=== PATIENT | female | born 1980 | race African-American/Black ===

== ENCOUNTER 2017-05-02 13:44 | Emergency (ER) | payer MEDICAID, OTHER ==
[~2017-05-02] VITALS: Ht 170.2 cm; Wt 82.0 kg
[2017-05-02] MEDS ORDERED: KETOROLAC 60MG/2ML VIAL IM STA (18:10)
[2017-05-02 19:22] LABS: CLARITY URINE TURBID (CLEAR); COLOR URINE YELLOW (YELLOW); GLUCOSE URINE NEGATIVE (NEGATIVE); KETONES URINE NEGATIVE (NEGATIVE); LEUKOCYTE ESTERASE URINE TRACE (NEGATIVE); NITRITE URINE NEGATIVE (NEGATIVE); OCCULT BLOOD URINE NEGATIVE (NEGATIVE); PROTEIN URINE NEGATIVE (NEGATIVE); SPECIFIC GRAVITY URINE 1.029 (1.005-1.030); UROBILINOGEN URINE 0.2 E.U./dL (0.2-1.0)
[2017-05-02 19:26] LABS: BASOPHILS % 0.9 % (0.0-2.0); EOSINOPHILS % 2.4 % (0.0-5.0); HEMATOCRIT. 42.2 % (36.0-48.0); HEMOGLOBIN. 14.4 g/dL (12.0-16.0); LYMPHOCYTES % 20.4 % (20.0-50.0); MEAN CORPUSCULAR VOLUME 84.7 fL (81.0-99.0); MEAN PLATELET VOLUME 8.6 fl (7.4-10.4); MONOCYTES % 6.2 % (2.0-8.0); NEUTROPHILS % 70.1 % (40.0-76.0); PLATELET 453 x1000/uL (130-400); RED BLOOD CELL COUNT 4.98 mill/uL (4.2-5.4); RED CELL DISTRIBUTION WIDTH 15.7 % (11.6-14.6)
[2017-05-02 19:29] LABS: CHLORIDE 106 mEq/L (98-107)
[2017-05-02 19:35] LABS: CARBON DIOXIDE 25 mEq/L (21-32)
[2017-05-02 20:45] VITALS: BP 121/75
== END 2017-05-02 20:46 | disposition home or self-care (01) ==
LOC: ER 13:44
DX: N39.0 Urinary tract infection, site not specified (principal); B37.3 Candidiasis of vulva and vagina
CPT/HCPCS: 36415; 80053; 81001; 81025; 85025; 96372; 99284; J1885; Z7610

== ENCOUNTER 2017-08-05 12:34 | Emergency (ER) | payer MEDICAID, OTHER ==
[~2017-08-05] VITALS: Ht 167.6 cm; Wt 110.0 kg
[2017-08-05] MEDS ORDERED: SODIUM CHLORIDE 0.9% 1,000 ML IV ONE ×2 (12:39→16:45)
[2017-08-05 13:20] LABS: HEMATOCRIT. 39.9 % (36.0-48.0); HEMOGLOBIN. 13.9 g/dL (12.0-16.0); MEAN CORPUSCULAR HEMOGLOBIN 29.2 pg (28.0-32.0); MEAN CORPUSCULAR VOLUME 83.8 fL (81.0-99.0); MEAN PLATELET VOLUME 7.9 fl (7.4-10.4); PLATELET 465 x1000/uL (130-400); RED BLOOD CELL COUNT 4.76 mill/uL (4.2-5.4); RED CELL DISTRIBUTION WIDTH 15.3 % (11.6-14.6)
[2017-08-05 13:30] LABS: CARBON DIOXIDE 24 mEq/L (21-32); CHLORIDE 105 mEq/L (98-107); ETHANOL BLOOD < 10 mg/dL
[2017-08-05 13:37] LABS: PLATELET ESTIMATE INCREASED
[2017-08-05] MEDS ORDERED: DIAZEPAM 5 MG/ML 2ML CPJ IV ONE (13:45)
[2017-08-05] MEDS ORDERED: LORAZEPAM 2MG/ML CPJ ONE (13:53)
[2017-08-05 15:17] LABS: CLARITY URINE CLEAR (CLEAR); COLOR URINE YELLOW (YELLOW); KETONES URINE NEGATIVE (NEGATIVE); LEUKOCYTE ESTERASE URINE NEGATIVE (NEGATIVE); NITRITE URINE NEGATIVE (NEGATIVE); OCCULT BLOOD URINE NEGATIVE (NEGATIVE); PROTEIN URINE NEGATIVE (NEGATIVE)
[2017-08-05 15:34] LABS: *AMPHETAMINES SCREEN URINE NEGATIVE (NEGATIVE); *BARBITURATES SCREEN URINE NEGATIVE (NEGATIVE); *COCAINE SCREEN URINE NEGATIVE (NEGATIVE); CANNABINOID URINE SCREEN NEGATIVE (NEGATIVE); METHADONE URINE SCREEN NEGATIVE (NEGATIVE); OPIATES URINE SCREEN NEGATIVE (NEGATIVE); PHENCYCLIDINE URINE SCREEN NEGATIVE (NEGATIVE)
[2017-08-05 15:40] LABS: *BENZODIAZEPINES SCREEN URINE PRESUMTIVE POSITIVE (NEGATIVE)
[2017-08-05] MEDS ORDERED: AZITHROMYCIN 500 MG in DEXT 5% WATER 250 ML IV SCH (16:45)
[2017-08-05 17:08] VITALS: BP 142/87
[2017-08-05] MEDS ORDERED: LORAZEPAM 2MG/ML CPJ IV ONE (18:15)
== END 2017-08-05 17:54 | disposition home or self-care (01) ==
LOC: ER 12:39
DX: J18.9 Pneumonia, unspecified organism (principal); F44.5 Conversion disorder with seizures or convulsions; J81.1 Chronic pulmonary edema
CPT/HCPCS: 36415; 71010; 80053; 80305; 81003; 85025; 87804; 96361; 96365; 99285; G0482; J0456; J2060; J7030; Z7610; J7060

== ENCOUNTER 2018-07-05 18:17 | Emergency (ER) | payer OTHER ==
[~2018-07-05] VITALS: Ht 170.2 cm; Wt 96.0 kg
[2018-07-05 20:18] LABS: CLARITY URINE CLOUDY (CLEAR); COLOR URINE ORANGE (YELLOW); KETONES URINE TRACE (NEGATIVE); LEUKOCYTE ESTERASE URINE 1+ (NEGATIVE); NITRITE URINE NEGATIVE (NEGATIVE); OCCULT BLOOD URINE 3+ (NEGATIVE); PH URINE 5.5 (4.5-8.0); PROTEIN URINE 1+ (NEGATIVE); SPECIFIC GRAVITY URINE 1.033 (1.005-1.030)
[2018-07-05 21:46] LABS: BASOPHILS % 0.9 % (0.0-2.0); EOSINOPHILS % 2.1 % (0.0-5.0); HEMATOCRIT. 39.4 % (36.0-48.0); HEMOGLOBIN. 13.9 g/dL (12.0-16.0); MEAN CORPUSCULAR HEMOGLOBIN 29.6 pg (28.0-32.0); MEAN CORPUSCULAR VOLUME 83.7 fL (81.0-99.0); MEAN PLATELET VOLUME 8.4 fl (7.4-10.4); MONOCYTES % 5.6 % (2.0-8.0); NEUTROPHILS % 71.4 % (40.0-76.0); PLATELET 449 x1000/uL (130-400); RED BLOOD CELL COUNT 4.71 mill/uL (4.2-5.4); RED CELL DISTRIBUTION WIDTH 15.4 % (11.6-14.6)
[2018-07-05 21:50] LABS: CHLORIDE 107 mEq/L (98-107)
[2018-07-05 22:01] LABS: B-HCG QUANTITATIVE < 1 mIU/mL (<3)
[2018-07-05 23:48] VITALS: BP 141/78
== END 2018-07-05 23:48 | disposition home or self-care (01) ==
LOC: ER 22:41
DX: D25.9 Leiomyoma of uterus, unspecified (principal); N93.9 Abnormal uterine and vaginal bleeding, unspecified; Z90.81 Acquired absence of spleen
CPT/HCPCS: 36415; 76830; 76856; 81025; 84443; 84702; 99284

== ENCOUNTER 2018-12-08 07:18 | Emergency (ER) | payer OTHER ==
[~2018-12-08] VITALS: Ht 170.2 cm; Wt 102.2 kg
[2018-12-08] MEDS ORDERED: KETOROLAC 30MG/ML VIAL IV STA (08:09)
[2018-12-08] MEDS ORDERED: PIPERACILLIN/TAZ 3.375G PREMIX 50 ML IV ONE (08:15)
[2018-12-08] MEDS ORDERED: SODIUM CHLORIDE 0.9% 1000ML BAG (SEPSIS BOLUS) IV ONE (08:15)
[2018-12-08] MEDS ORDERED: VANCOMYCIN 1 G PREMIX 200 ML IV ONE (08:15)
[2018-12-08 08:42] LABS: BASOPHILS % 0.4 % (0.0-2.0); EOSINOPHILS % 3.1 % (0.0-5.0); HEMATOCRIT. 40.7 % (36.0-48.0); HEMOGLOBIN. 14.3 g/dL (12.0-16.0); LYMPHOCYTES % 8.4 % (20.0-50.0); MEAN CORPUSCULAR VOLUME 82.6 fL (81.0-99.0); MONOCYTES % 5.5 % (2.0-8.0); NEUTROPHILS % 82.6 % (40.0-76.0); PLATELET 447 x1000/uL (130-400); RED BLOOD CELL COUNT 4.92 mill/uL (4.2-5.4); RED CELL DISTRIBUTION WIDTH 15.7 % (11.6-14.6)
[2018-12-08 08:44] LABS: INR 1.1; PARTIAL THROMBOPLASTIN TIME 30.7 sec (23.4-31.0)
[2018-12-08 08:45] LABS: CHLORIDE 111 mEq/L (98-107)
[2018-12-08 08:53] LABS: HCG SCREEN NEGATIVE
[2018-12-08 10:04] LABS: CLARITY URINE CLOUDY (CLEAR); COLOR URINE YELLOW (YELLOW); KETONES URINE NEGATIVE (NEGATIVE); LEUKOCYTE ESTERASE URINE TRACE (NEGATIVE); NITRITE URINE NEGATIVE (NEGATIVE); OCCULT BLOOD URINE NEGATIVE (NEGATIVE); PROTEIN URINE NEGATIVE (NEGATIVE); SPECIFIC GRAVITY URINE 1.013 (1.005-1.030); UROBILINOGEN URINE 0.2 E.U./dL (0.2-1.0)
[2018-12-08 15:36] VITALS: BP 134/80
== END 2018-12-08 16:04 | disposition short-term general hospital (02) ==
LOC: ER 07:18 → CANBEDREQ 19:35
DX: L03.114 Cellulitis of left upper limb (principal); R65.10 Systemic inflammatory response syndrome (SIRS) of non-infectious origin without acute organ dysfunction; Z98.890 Other specified postprocedural states
CPT/HCPCS: 36415; 73090; 80048; 81003; 81025; 83605; 84145; 84703; 85025; 85610; 85730; 87040; 87086; 93005; 96365; 96366; 96368; 96375; 99285; J1885; J2543; J3370; J7030

== ENCOUNTER 2019-07-19 07:42 | Emergency (ER) | payer OTHER ==
[~2019-07-19] VITALS: Ht 170.2 cm; Wt 86.0 kg
[2019-07-19] MEDS ORDERED: ALBUTEROL (0.083%) 2.5MG/3ML NEB HHN ONE (09:00)
[2019-07-19 10:17] VITALS: BP 127/91
== END 2019-07-19 10:44 | disposition home or self-care (01) ==
LOC: ER 07:42
DX: J06.9 Acute upper respiratory infection, unspecified (principal); Z98.890 Other specified postprocedural states; Z90.81 Acquired absence of spleen
CPT/HCPCS: 71046; 81025; 87804; 94640; 99284; J7611; Z7610

== ENCOUNTER 2024-05-22 09:45 | Emergency (ER) | payer BC ==
[~2024-05-22] VITALS: Ht 170.2 cm; Wt 82.0 kg
[~2024-05-22 09:45] MED LIST: FLUT9.9S BOTHNSTRLS; IBUP-2029 MT; METH-653 MT; PSEU-207 MT; SULF1TAB48 MT
[2024-05-22 09:52] VITALS: O2SAT 100
[2024-05-22] MEDS: IBUPROFEN 600MG TABLET PO ONE (10:53)
[2024-05-22 11:18] VITALS: BP 145/87; PULSE 77; RESP 18; TEMP 36.66960; O2SAT 100
== END 2024-05-22 11:30 | disposition home or self-care (01) ==
LOC: MERGE 09:45 → ER 09:45
DX: M79.671 Pain in right foot (principal); Z79.899 Other long term (current) drug therapy; Z98.890 Other specified postprocedural states
CPT/HCPCS: 73610; 73630; 29515; 99284; Z7610

== ENCOUNTER → 2024-05-30 | Outpatient (CLI) | payer OTHER | END | disposition home or self-care (01) | LOC: MRI 12:17 | PROVIDERS: ATTEND Family Medicine Adult Medicine | DX: M71.571 Other bursitis, not elsewhere classified, right ankle and foot (principal); G57.91 Unspecified mononeuropathy of right lower limb | CPT/HCPCS: 73721 ==

== ENCOUNTER 2025-04-17 14:13 | Inpatient (IN) | payer MEDICAID ==
[~2025-04-17] VITALS: Ht 170.2 cm; Wt 90.7 kg
[2025-04-17 08:00] VITALS: BP 139/71; PULSE 55; RESP 18; TEMP 36.8; O2SAT 97
[~2025-04-17 14:13] MED LIST changes: +IBUP-1455 MT; -IBUP-2029 MT; -PSEU-207 MT; +PSEU-307 MT
[2025-04-17 14:22] VITALS: O2SAT 98
[2025-04-17] MEDS: SODIUM CHLORIDE 0.9% 1,000 ML IV ONE ×2 (15:45→17:49)
[2025-04-17] MEDS: METOCLOPRAMIDE HCL 10MG/2ML VIAL IV ONE (15:45)
[2025-04-17] MEDS: MORPHINE SULFATE 4 MG/ML INJ (FOR IV/IM USE) IV ONE (15:46)
[2025-04-17 15:51] LABS: HEMATOCRIT. 42.8 % (36.0-48.0); HEMOGLOBIN. 15.3 g/dL (12.0-16.0); MEAN PLATELET VOLUME 8.3 fl (7.4-10.4); PLATELET 470 x1000/uL (130-400); RED BLOOD CELL COUNT 5.23 mill/uL (4.2-5.4); RED CELL DISTRIBUTION WIDTH 15.9 % (11.6-14.6)
[2025-04-17 16:09] LABS: HCG SCREEN NEGATIVE
[2025-04-17 16:10] LABS: CREATININE 0.8 mg/dL (0.6-1.0); UREA NITROGEN BLOOD < 5 mg/dL (9-23)
[2025-04-17 16:11] LABS: ETHANOL BLOOD < 10 mg/dL (<10)
[2025-04-17 16:12] LABS: ASPARTATE AMINOTRANSFERASE 17 IU/L (<34); BILIRUBIN DIRECT 0.2 mg/dL (<=3.0)
[2025-04-17 16:13] LABS: BILIRUBIN TOTAL 0.8 mg/dL (0.1-1.0); PROTEIN TOTAL 7.8 g/dL (6.0-8.3)
[2025-04-17 16:15] LABS: LYMPHOCYTES % MANUAL 1.0 % (20.0-60.0); MONOCYTES % MANUAL 2.0 % (2.0-8.0); NEUTROPHILS % MANUAL 97.0 % (45.0-75.0); PLATELET ESTIMATE INCREASED
[2025-04-17 17:30] LABS: CLARITY URINE CLEAR (CLEAR); COLOR URINE YELLOW (YELLOW); GLUCOSE URINE NEGATIVE (NEGATIVE); KETONES URINE 2+ (NEGATIVE); LEUKOCYTE ESTERASE URINE NEGATIVE (NEGATIVE); NITRITE URINE NEGATIVE (NEGATIVE); OCCULT BLOOD URINE 3+ (NEGATIVE); PH URINE 7.5 (4.5-8.0); PROTEIN URINE 1+ (NEGATIVE); SPECIFIC GRAVITY URINE 1.017 (1.005-1.030); UROBILINOGEN URINE 0.2 E.U./dL (0.2-1.0)
[2025-04-17] MEDS ORDERED: CEFTRIAXONE SODIUM 2G VIAL IM ONE (17:30)
[2025-04-17 17:42] LABS: BACTERIA URINE TRACE; SQUAMOUS EPITHELIAL CELL URINE FEW /lpf (RARE/1+); WBC URINE 0-2 /hpf (0-2)
[2025-04-17 17:44] LABS: *AMPHETAMINES SCREEN URINE NEGATIVE (NEGATIVE); *BARBITURATES SCREEN URINE NEGATIVE (NEGATIVE); *BENZODIAZEPINES SCREEN URINE NEGATIVE (NEGATIVE); *COCAINE SCREEN URINE NEGATIVE (NEGATIVE); CANNABINOID URINE SCREEN PRESUMPTIVE POSITIVE (NEGATIVE); ECSTASY MDMA SCREEN URINE NEGATIVE (NEGATIVE); METHADONE URINE SCREEN NEGATIVE (NEGATIVE); OPIATES URINE SCREEN PRESUMPTIVE POSITIVE (NEGATIVE); PHENCYCLIDINE URINE SCREEN NEGATIVE (NEGATIVE)
[2025-04-17] MEDS: HALOPERIDOL LACTATE 5MG/ML VIAL IM ONE (17:51)
[2025-04-17] MEDS ORDERED: CLONIDINE 0.1MG TABLET PO PRN (18:00)
[2025-04-17] MEDS ORDERED: DEXTROSE 50% WATER 50ML SYRINGE IV PRN (18:00)
[2025-04-17] MEDS ORDERED: MAGNESIUM/ALUMINUM HYDROXIDE/SIMETHICONE 30ML UDC PO PRN (18:00)
[2025-04-17] MEDS ORDERED: ACETAMINOPHEN 325MG TABLET PO PRN (18:00)
[2025-04-17] MEDS ORDERED: MORPHINE SULFATE 2 MG/ML INJ (NOT FOR IM USE) IV PRN (18:00)
[2025-04-17] MEDS: BLOOD SUGAR DIAGNOSTIC STRIP TEST SCH (18:04)
[2025-04-17] MEDS: INSULIN LISPRO 100 UNITS/ML SUBCUT SCH (18:20)
[2025-04-17 20:00] VITALS: BP 139/71; PULSE 55; RESP 18; TEMP 36.8; TEMP 36.8072; O2SAT 97
[2025-04-17] MEDS ORDERED: ZOLPIDEM TARTRATE 5MG TABLET PO PRN (20:00)
[2025-04-17] MEDS: SODIUM CHLORIDE 0.9% 1,000 ML IV SCH (20:23)
[2025-04-17] MEDS: PIPERACILLIN/TAZO 3.375G/50ML 50 ML IV NR (20:23)
[2025-04-17] MEDS: HYDROCODONE/ACETAMINOPHEN 5/325MG TABLET PO PRN (20:25)
[2025-04-17] MEDS: METOCLOPRAMIDE HCL 10MG/2ML VIAL IV SCH (21:19)
[2025-04-17] MEDS ORDERED: IOHEXOL-300 100 ML BOTTLE ONE (22:52)
[2025-04-18] VITALS: BP 117/69; PULSE 51; RESP 16; TEMP 36.8; O2SAT 97
[2025-04-18 01:17] LABS: TROPONIN I HIGH SENSITIVITY 7 ng/L (3.0-34)
[2025-04-18] MEDS: ONDANSETRON HCL 4MG/2ML INJ IV PRN (02:44)
[2025-04-18 04:00] VITALS: BP 111/62; PULSE 54; RESP 16; TEMP 36.8; O2SAT 98
[2025-04-18] MEDS: PIPERACILLIN/TAZO 3.375G/50ML 50 ML IV SCH (05:12)
[2025-04-18] MEDS: ENOXAPARIN 30MG/0.3ML SYR SUBCUT SCH (09:10)
[2025-04-18] MEDS: PANTOPRAZOLE SODIUM 40 MG/VIAL IV SCH (09:10)
== END 2025-04-18 15:20 | disposition left against medical advice (07) | DRG 241 ==
LOC: ER 14:13 → EDBEDREQ 17:34 → EDBEDREQTM 17:34 → ENRESERV 17:48 → 5WST 20:01
PROVIDERS: ADMIT Internal Medicine; ATTEND Internal Medicine
DX: K29.70 Gastritis, unspecified, without bleeding (principal); D25.9 Leiomyoma of uterus, unspecified; D72.829 Elevated white blood cell count, unspecified; E66.9 Obesity, unspecified; Z53.29 Procedure and treatment not carried out because of patient's decision for other reasons; R10.30 Lower abdominal pain, unspecified; Z90.81 Acquired absence of spleen; Z68.31 Body mass index [BMI] 31.0-31.9, adult
CPT/HCPCS: 36415; 74177; 80048; 80076; 80305; 80320; 81003; 83735; 84484; 84703; 85025; 96361; 96365; 96375; 99285; J0696; J1630; J1650; J2270; J2405; J2470; J2543; J2765; J7030; Q9967; G0480